=== PATIENT | male | born 1945 | race Caucasian/White ===

== ENCOUNTER 2018-04-22 12:56 | Observation (INO) | payer OTHER ==
[2018-04-22] MEDS ORDERED: FENTANYL CITR 100 MCG/2 ML ONE (15:22)
[2018-04-22] MEDS ORDERED: NA CHLORIDE 0.9% 1,000 ML ONE (15:23)
[2018-04-22] MEDS ORDERED: NA CHLORIDE 0.9% 500 ML ONE (15:23)
[2018-04-22] MEDS ORDERED: TETANUS & DIPHTHERIA TOX,ADULT 0.5 ML VIAL ONE (15:23)
[2018-04-22] MEDS ORDERED: ONDANSETRON 4 MG/2 ML VIAL ONE (15:23)
--- NOTE | 2018-04-22 15:47 | RAD REPORT ---
EXAM DESCRIPTION: US - LOWER EXTREMITY ARTERY UNI LTD - 04/22/2018 3:38 pm CLINICAL HISTORY: PAIN COMPARISON: None FINDINGS: Grayscale, spectral, color and power Doppler of the left lower extremity arterial system w as performed. Diffuse blunted and monophasic waveforms were seen throughout the left lower extremity arterial system. Significant inflow disease is suspected. No occlusion is present. IMPRESSION: Significant diffuse left lower extremity peripheral vascular disease is noted.
[2018-04-22] MEDS ORDERED: PIPER/TAZO/NS 3.375gm 3.375 GM/100 ML BAG IV ONE (16:00)
[2018-04-22] MEDS: VANCOMYCIN 750 MG in NA CHLORIDE 0.9% 150 ML IVPB SCH (16:00)
--- NOTE | 2018-04-22 16:13 | RAD REPORT ---
EXAM DESCRIPTION: RAD - Chest Single View - 04/22/2018 4:04 pm CLINICAL HISTORY: COUGH Chest pain. COMPARISON: CHEST SINGLE VIEW dated 03/13/2013; CHEST SINGLE VIEW dated 03/11/2013; CHEST SINGLE VIEW dated 03/10/2013 FINDINGS: Portable technique limits examination quality. The lungs are emphysematous. The heart is enlarged in size with aortic atherosclerosis. Heavy atheros clerosis is seen. Posttraumatic changes are present evidence of previous left arm amputation.
[2018-04-22 16:19] LABS: Absolute Lymphocytes (CBC) 0.8 K/uL (0.7-4.9); Absolute Monocytes 1.1 K/uL (0.1-1.3); Absolute Neutrophil 16.9 K/uL (1.8-8.0); Basophils % 0.2 % (0-1.3); Eosinophils % 0.2 % (0-4.4); Hematocrit 41.7 % (39.6-49.0); Lymphocytes % 4.3 % (15.3-44.8); MCH 32.9 pg (27.0-35.0); MCV 98.7 fL (80-100); MPV 9.1 fL (7.6-11.3); Monocytes % 5.9 % (3.3-12.3); RBC Red Blood Cell Count 4.22 M/uL (4.33-5.43)
--- NOTE | 2018-04-22 16:54 | ER ---
Nurse's Notes [facility] Name: Jorge Zuleta Age: 73 yrs Sex: Male : 1945 Arrival Date: 04/22/2018 Time: 13:01 Bed 17 Private MD: Out, [facility] Diagnosis: Cellulitis and acute lymphangitis of other parts of limb;Other specified peripheral vascular diseases-right foot, toe necrosis;Chronic obstructive pulmonary disease, unspecified;Elevated white blood cell count Presentation: 04/22 13:40 Presenting complaint: Child states: " He stays at a fdc in [place] and I go ph pick him up to visit. He has an infected wound on his foot and he says that they haven't been taking care of it like they are supposed to." wounds noted to top of L foot, L great, 2nd, 3rd, and 4th toes w/ subcutaneous tissue visible on top of foot, toes blackened in appearance, no drainage noted. Pt w/ L leg and R arm amputated, denies fever N/V/D, states, " My blood pressure has been low. Transition of care: patient was not received from another setting of care. Onset of symptoms was April 22, 2018. Risk Assessment: Do you want to hurt yourself or someone else? Patient reports no desire to harm self or others. Initial Sepsis Screen: Does the patient meet any 2 criteria? No. Patient's initial sepsis screen is negative. Does the patient have a suspected source of infection? Yes: Skin breakdown/wound. Care prior to arrival: None. 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 - Family history:: not pertinent. - Ebola Screening: : Patient negative for fever greater than or equal to 101.5 degrees Fahrenheit, and additional compatible Ebola Virus Disease symptoms. - Social history:: Smoking status: Patient uses tobacco products, smokes two packs cigarettes per day. Screenin:45 Abuse screen: Denies threats or abuse. Nutritional screening: No deficits noted. rb1 Tuberculosis screening: No symptoms or risk factors identified. Fall Risk No fall in past 12 months (0 pts). Secondary diagnosis (15 points) impaired mobility, No IV (0 pts). Ambulatory Aid- None/Bed Rest/Nurse Assist (0 pts). Gait- Impaired (20 pts.). Mental Status- Overestimates/Forgets Limitations (15 pts.). Total Payne Fall Scale indicates High Risk Score (45 or more points). Fall prevention measures have been instituted. Side Rails Up X 2 Placed Close to Nursing Station 1:1 Attendant Assigned Frequent Obs/Assessments Occuring Family Present and informed to notify staff if the need to leave the bedside As available patient and family educated on Fall Prevention Program and Strategies. Assessment: 13:45 General: Appears in no apparent distress. comfortable, slender, unkempt, Behavior is rb1 calm. Pain: Complains of pain in left leg. Neuro: Level of Consciousness is awake, obeys commands, confused, Oriented to person. Cardiovascular: Capillary refill is > 3 seconds is brisk in left toes. Respiratory: Airway is patent Respiratory effort is even, unlabored, Respiratory pattern is regular, symmetrical. GI: incontinence. : incontinence. Derm: Wound noted Other: wounds generalized on leg and arms. 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 15:26 Reassessment: From Alla at LT care facility: Pt is a resident [place] [id number] [facility]. Pt is out on pass since yesterday. Pt regularly on morphine. She reports pt is on hospice ([facility]) for wound on foot and "unavoidable weight loss". Medlist and history faxed over. Was told to call [phone] Station 1 if we have any more questions. 16:26 Reassessment: Patient appears in no apparent distress at this time. Patient and/or rb1 family updated on plan of care and expected duration. Pain level reassessed. 17:05 Reassessment: Dr. Hart is at bedside. rb1 17:23 Reassessment: Patient appears in no apparent distress at this time. Patient and/or rb1 family updated on plan of care and expected duration. Pain level reassessed. 18:00 Reassessment: Pt. refused the dressing on his foot. Pt. stated, "It hurts and I'm not rb1 going to let you do it.". 18:20 Reassessment: Patient appears in no apparent distress at this time. Patient and/or rb1 family updated on plan of care and expected duration. Pain level reassessed. 18:55 Reassessment: Attempted to do wound dressing again, but the pt. refused. rb1 19:30 Reassessment: Patient tolerated loose wet to dry dressing to left foot at this time, lp1 dressed with 4x4's and kerlix;. General: Behavior is uncooperative. Pain: Complains of pain in left foot Quality of pain is described as aching. Respiratory: Respiratory effort is even, unlabored. Derm: Skin is thin, with poor turgor Skin is dry, Skin is normal, Skin temperature is warm Wound noted Other: left foot wounds noted; black in color, poor perfusion noted. Vital Signs: 13:45 BP 102 / 70; Pulse 45; Resp 20; Temp 98.0(O); Pulse Ox 94% on R/A; Weight 38.1 kg; ph 16:30 BP 117 / 83; Pulse 90; Resp 20; Pulse Ox 95% on 4% Simple Mask; rb1 17:24 BP 133 / 77; Pulse 89; Resp 14; Pulse Ox 94% on 4% Simple Mask; rb1 18:24 BP 120 / 87; Pulse 94; Resp 21; Pulse Ox 95% on 4% Simple Mask; rb1 19:30 BP 117 / 68; Pulse 89; Resp 19; Pulse Ox 97% on R/A; lp1 ED Course: 13:01 Patient arrived in ED. sb2 13:01 Out, [facility] is Private Physician. sb2 13:45 Triage completed. ph 13:45 Patient has correct armband on for positive identification. Bed in low position. Call rb1 light in reach. Side rails up X2. site monitor on. Pulse ox on. NIBP on. Warm blanket given. 13:46 Marty Harris MD is Attending Physician. [facility] 13:46 Arm band placed on Patient placed in an exam room. ph 15:13 Roxy Feliciano, TAMARA is Primary Nurse. rb1 15:30 Inserted saline lock: 22 gauge in right antecubital area, using aseptic technique. rb1 Blood collected. 15:38 US LE Artery Uni Ltd In Process Unspecified. EDMS 16:04 XRAY Chest (1 view) In Process Unspecified. EDMS 16:30 EKG done, by ED staff, reviewed by Marty Harris MD. 3 16:52 Erasmo Hart DO is Hospitalizing Provider. mars 17:12 Lab(s) recollected, by me, sent to lab. Second set of blood cultures drawn by nv, by [facility] venipuncture 23G right forearm. 19:00 Report given to TAMARA Dorsey. rb1 19:44 No provider procedures requiring assistance completed. Patient admitted, IV remains in lp1 place. 20:10 Repeat lab(s) drawn. by me, sent to lab. lp1 Administered Medications: 16:00 Drug: Tetanus-Diphtheria Toxoid Adult 0.5 ml {[employer]: [employer]. Exp: rb1 05/17/2019. Lot #: [id number]. } Route: IM; Site: right deltoid; 16:15 Follow up: Response: No adverse reaction rb1 16:05 Drug: NS 0.9% 500 ml Route: IV; Rate: bolus; Site: right antecubital; rb1 16:40 Follow up: IV Status: Completed infusion rb1 16:05 Drug: fentaNYL (PF) 25 mcg Route: IVP; Site: right antecubital; rb1 16:20 Follow up: Response: No adverse reaction; Pain is decreased rb1 16:05 Drug: Zofran 4 mg Route: IVP; Site: right antecubital; rb1 16:20 Follow up: Response: No adverse reaction; Nausea is decreased rb1 16:40 Drug: Zosyn 3.375 grams {Note: Called Mina in pharmacy to see if Vancomycin and Zosyn rb1 were compatible so they could be hung together and he said yes..} Route: IVPB; Infused Over: 60 mins; Site: right antecubital; 17:50 Follow up: Response: No adverse reaction; IV Status: Completed infusion rb1 16:40 Drug: vancoMYCIN 800 mg Route: IVPB; Infused Over: 2 hrs; Site: right antecubital; rb1 17:50 Follow up: Response: No adverse reaction; IV Status: Completed infusion rb1 18:30 Drug: NS 0.9% 1000 ml Route: IV; Rate: 125 ml/hr; Site: right antecubital; rb1 19:59 Follow up: IV Status: Infusion continued upon admission lp1 19:10 Drug: Pepcid 20 mg Route: IVP; Site: right antecubital; rb1 19:58 Follow up: Response: No adverse reaction lp1 19:10 Drug: Lopressor 25 mg Route: PO; rb1 19:58 Follow up: Response: No adverse reaction lp1 19:10 Drug: Aspirin 162 mg Route: PO; rb1 19:59 Follow up: Response: No adverse reaction lp1 19:21 Not Given (Patient Refused): Lovenox 1 mg/kg Sub-Q once rb1 Outcome: 16:54 Decision to Hospitalize by Provider. [facility] 19:44 Condition: stable [facility] 19:44 Instructed on the need for admit. 19:57 Admitted to Med/surg via stretcher, room 218, with chart, Report called to TAMARA Rodriguez lp1 20:24 Patient left the ED. lp1 Signatures: Dispatcher [employer] EDMS Naila Muniz, RN RN dm5 Marty Harris MD MD cha Pena, Laura RN RN lp1 Jacqueline Gimenez RN Roxy Mccray ph, RN RN rb1 Lexis Russo 3 Sydney De Jesus sb2 Corrections: (The following items were deleted from the chart) 17:24 16:26 Reassessment: Patient appears in no apparent distress at this time. Patient rb1 and/or family updated on plan of care and expected duration. Pain level reassessed. Patient is alert, oriented x 3, equal unlabored respirations, skin warm/dry/pink. rb1
--- NOTE | 2018-04-22 16:54 | EDPHYS ---
Physician Documentation [facility] Name: Jorge Zuleta Age: 73 yrs Sex: Male : 1945 Arrival Date: 04/22/2018 Time: 13:01 Bed 17 Private MD: Out, [facility] ED Physician Marty Harris HPI: 04/22 14:47 This 73 yrs old Male presents to ER via Wheelchair with complaints of FOOT mars INFECTION. 14:47 The patient presents with decreased range of motion, an injury. The complaints affect mars the lateral aspect of left calf, left lateral ankle, lateral aspect of left foot, medial aspect of left calf, left medial ankle, medial aspect of left foot, left arteaga and dorsum of left foot. Context: The problem was sustained at home. Onset: The symptoms/episode began/occurred 3 day(s) ago. Modifying factors: The symptoms are alleviated by nothing. the symptoms are aggravated by movement, bending knee. Associated signs and symptoms: The patient has no apparent associated signs or symptoms. Severity of symptoms: At their worst the symptoms were mild, moderate, in the emergency department the symptoms are actually worse, markedly. The patient has experienced similar episodes in the past, multiple times. 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 - Family history:: not pertinent. - Ebola Screening: : Patient negative for fever greater than or equal to 101.5 degrees Fahrenheit, and additional compatible Ebola Virus Disease symptoms. - Social history:: Smoking status: Patient uses tobacco products, smokes two packs cigarettes per day. ROS: 14:47 Constitutional: Negative for fever, chills, and weight loss, Eyes: Negative for injury, mars pain, redness, and discharge, ENT: Negative for injury, pain, and discharge, Neck: Negative for injury, pain, and swelling, Cardiovascular: Negative for chest pain, palpitations, and edema, Respiratory: Negative for shortness of breath, cough, wheezing, and pleuritic chest pain, Abdomen/GI: Negative for abdominal pain, nausea, vomiting, diarrhea, and constipation, Back: Negative for injury and pain, : Negative for injury, bleeding, discharge, and swelling, Skin: Negative for injury, rash, and discoloration, Neuro: Negative for headache, weakness, numbness, tingling, and seizure, Psych: Negative for depression, anxiety, suicide ideation, homicidal ideation, and hallucinations, Allergy/Immunology: Negative for hives, rash, and allergies, Endocrine: Negative for neck swelling, polydipsia, polyuria, polyphagia, and marked weight changes, Hematologic/Lymphatic: Negative for swollen nodes, abnormal bleeding, and unusual bruising. 14:47 MS/extremity: Positive for decreased range of motion, pain, swelling, tenderness, warmth, of the lateral aspect of left calf, left lateral ankle, lateral aspect of left foot, medial aspect of left calf, left medial ankle, medial aspect of left foot, left arteaga, anterior aspect of left ankle and dorsum of left foot. Exam: 14:47 Constitutional: This is a well developed, well nourished patient who is awake, alert, mars and in no acute distress. Head/Face: Normocephalic, atraumatic. Eyes: Pupils equal round and reactive to light, extra-ocular motions intact. Lids and lashes normal. Conjunctiva and sclera are non-icteric and not injected. Cornea within normal limits. Periorbital areas with no swelling, redness, or edema. ENT: Nares patent. No nasal discharge, no septal abnormalities noted. Tympanic membranes are normal and external auditory canals are clear. Oropharynx with no redness, swelling, or masses, exudates, or evidence of obstruction, uvula midline. Mucous membranes moist. Neck: Trachea midline, no thyromegaly or masses palpated, and no cervical lymphadenopathy. Supple, full range of motion without nuchal rigidity, or vertebral point tenderness. No Meningismus. Chest/axilla: Normal chest wall appearance and motion. Nontender with no deformity. No lesions are appreciated. Respiratory: Lungs have equal breath sounds bilaterally, clear to auscultation and percussion. No rales, rhonchi or wheezes noted. No increased work of breathing, no retractions or nasal flaring. Abdomen/GI: Soft, non-tender, with normal bowel sounds. No distension or tympany. No guarding or rebound. No evidence of tenderness throughout. Back: No spinal tenderness. No costovertebral tenderness. Full range of motion. Male : Normal genitalia with no discharge or lesions. Neuro: Awake and alert, GCS 15, oriented to person, place, time, and situation. Cranial nerves II-XII grossly intact. Motor strength 5/5 in all extremities. Sensory grossly intact. Cerebellar exam normal. Normal gait. Psych: Awake, alert, with orientation to person, place and time. Behavior, mood, and affect are within normal limits. 14:47 Cardiovascular: Rate: bradycardic, Rhythm: regular, Pulses: Pulses are 3+ in bilateral radial, brachial, femoral, popliteal, posterior tibial and and dorsalis pedis arteries.. Heart sounds: normal, Edema: is not appreciated, JVD: is not appreciated. Vital Signs: 13:45 BP 102 / 70; Pulse 45; Resp 20; Temp 98.0(O); Pulse Ox 94% on R/A; Weight 38.1 kg; ph 16:30 BP 117 / 83; Pulse 90; Resp 20; Pulse Ox 95% on 4% Simple Mask; rb1 17:24 BP 133 / 77; Pulse 89; Resp 14; Pulse Ox 94% on 4% Simple Mask; rb1 18:24 BP 120 / 87; Pulse 94; Resp 21; Pulse Ox 95% on 4% Simple Mask; rb1 19:30 BP 117 / 68; Pulse 89; Resp 19; Pulse Ox 97% on R/A; lp1 MDM: 13:47 Patient medically screened. [facility] 14:47 Data reviewed: vital signs, nurses notes, lab test result(s), EKG, radiologic studies, mars doppler, plain films. 04/22 14:46 Order name: Basic Metabolic Panel; Complete Time: 18:21 [facility] 04/22 14:46 Order name: CBC with Diff; Complete Time: 17:43 [facility] 04/22 14:46 Order name: Ckmb; Complete Time: 18:21 [facility] 04/22 14:46 Order name: CPK; Complete Time: 18:21 [facility] 04/22 14:46 Order name: LFT's; Complete Time: 18:21 [facility] 04/22 14:46 Order name: Magnesium; Complete Time: 18:21 [facility] 04/22 14:46 Order name: NT PRO-BNP; Complete Time: 18:21 [facility] 04/22 14:46 Order name: PT-INR; Complete Time: 17:43 [facility] 04/22 14:46 Order name: Ptt, Activated; Complete Time: 17:43 [facility] 04/22 14:46 Order name: Troponin (emerg Dept Use Only); Complete Time: 18:21 [facility] 04/22 14:46 Order name: Sed Rate; Complete Time: 17:43 [facility] 04/22 14:46 Order name: Blood Culture Adult (2) [facility] 04/22 14:46 Order name: Procalcitonin [facility] 04/22 14:46 Order name: Lactate; Complete Time: 18:21 [facility] 04/22 14:46 Order name: XRAY Chest (1 view); Complete Time: 16:49 [facility] 04/22 14:46 Order name: US LE Artery Uni Ltd; Complete Time: 16:49 [facility] 04/22 16:24 Order name: CBC Smear Scan; Complete Time: 17:43 [facility] 04/22 16:53 Order name: Digoxin; Complete Time: 18:21 04/22 16:54 Order name: Foot Left 3 View XRAY [facility] 04/22 17:00 Order name: Echo with Doppler [facility] 04/22 18:36 Order name: RAD [facility] 04/22 20:01 Order name: Lactate lp1 04/22 14:46 Order name: EKG; Complete Time: 14:47 [facility] 04/22 14:46 Order name: Cardiac monitoring; Complete Time: 16:55 [facility] 04/22 14:46 Order name: EKG - Nurse/Tech; Complete Time: 16:55 [facility] 04/22 14:46 Order name: IV Saline Lock; Complete Time: 16:28 [facility] 04/22 14:46 Order name: Labs collected and sent; Complete Time: 16:28 [facility] 04/22 14:46 Order name: O2 Per Protocol; Complete Time: 16:28 [facility] 04/22 14:46 Order name: O2 Sat Monitoring; Complete Time: 16:28 [facility] 04/22 14:46 Order name: Wound Care: wet to dry; Complete Time: 19:22 [facility] 04/22 16:53 Order name: Labs - recollect needed; Complete Time: 17:20 04/22 17:00 Order name: CONS Physician Consult EDMS 04/22 17:00 Order name: CONS Physician Consult EDIL Administered Medications: 16:00 Drug: Tetanus-Diphtheria Toxoid Adult 0.5 ml {[employer]: [employer]. Exp: rb1 05/17/2019. Lot #: [id number]. } Route: IM; Site: right deltoid; 16:15 Follow up: Response: No adverse reaction rb1 16:05 Drug: NS 0.9% 500 ml Route: IV; Rate: bolus; Site: right antecubital; rb1 16:40 Follow up: IV Status: Completed infusion rb1 16:05 Drug: fentaNYL (PF) 25 mcg Route: IVP; Site: right antecubital; rb1 16:20 Follow up: Response: No adverse reaction; Pain is decreased rb1 16:05 Drug: Zofran 4 mg Route: IVP; Site: right antecubital; rb1 16:20 Follow up: Response: No adverse reaction; Nausea is decreased rb1 16:40 Drug: Zosyn 3.375 grams {Note: Called Mina in pharmacy to see if Vancomycin and Zosyn rb1 were compatible so they could be hung together and he said yes..} Route: IVPB; Infused Over: 60 mins; Site: right antecubital; 17:50 Follow up: Response: No adverse reaction; IV Status: Completed infusion rb1 16:40 Drug: vancoMYCIN 800 mg Route: IVPB; Infused Over: 2 hrs; Site: right antecubital; rb1 17:50 Follow up: Response: No adverse reaction; IV Status: Completed infusion rb1 18:30 Drug: NS 0.9% 1000 ml Route: IV; Rate: 125 ml/hr; Site: right antecubital; rb1 19:59 Follow up: IV Status: Infusion continued upon admission lp1 19:10 Drug: Pepcid 20 mg Route: IVP; Site: right antecubital; rb1 19:58 Follow up: Response: No adverse reaction lp1 19:10 Drug: Lopressor 25 mg Route: PO; rb1 19:58 Follow up: Response: No adverse reaction lp1 19:10 Drug: Aspirin 162 mg Route: PO; rb1 19:59 Follow up: Response: No adverse reaction lp1 19:21 Not Given (Patient Refused): Lovenox 1 mg/kg Sub-Q once rb1 Disposition: 04/22/18 16:54 Hospitalization ordered by Erasmo Hart for Inpatient Admission. Preliminary diagnosis are Cellulitis and acute lymphangitis of other parts of limb, Other specified peripheral vascular diseases - right foot, toe necrosis, Chronic obstructive pulmonary disease, unspecified, Elevated white blood cell count. - Bed requested for Telemetry/MedSurg (Inpatient). - Status is Inpatient Admission. lp1 - Condition is Serious. - Problem is new. - Symptoms have improved. UTI on Admission? No Signatures: Dispatcher [employer] EDJoleen Bull Kimberly, RN RN Marty Kendrick MD MD cha Pena, Laura, RN RN lp1 Jacqueline Gimenez RN RN Roxy Feliciano RN RN [facility] Corrections: (The following items were deleted from the chart) 19:43 16:54 Hospitalization Ordered by Erasmo Hart DO for Inpatient Admission. Preliminary diagnosis is Cellulitis and acute lymphangitis of other parts of limb; Other specified peripheral vascular diseases - right foot, toe necrosis; Chronic obstructive pulmonary disease, unspecified; Elevated white blood cell count. Bed requested for Telemetry/MedSurg (Inpatient). Status is Inpatient Admission. Condition is Serious. Problem is new. Symptoms have improved. UTI on Admission? No. mars 20:24 19:43 04/22/2018 16:54 Hospitalization Ordered by Erasmo Hart DO for Inpatient lp1 Admission. Preliminary diagnosis is Cellulitis and acute lymphangitis of other parts of limb; Other specified peripheral vascular diseases - right foot, toe necrosis; Chronic obstructive pulmonary disease, unspecified; Elevated white blood cell count. Bed requested for Telemetry/MedSurg (Inpatient). Status is Inpatient Admission. Condition is Serious. Problem is new. Symptoms have improved. UTI on Admission? No. denny
[2018-04-22 17:40] LABS: Protime INR 1.14
[2018-04-22 17:41] LABS: Blood Morphology Comment NOT SEEN (NOT SEEN); Platelet Estimate ADEQ; Urine White Blood Cell Casts OK
[2018-04-22 17:46] LABS: ALT/SGPT 16 U/L (12-78); AST/SGOT 25 U/L (15-37); Albumin 2.7 g/dL (3.4-5.0); BUN Blood Urea Nitrogen 21 mg/dL (7-18); Bicarbonate 26 mmol/L (21-32); Bilirubin Direct 0.3 mg/dL (0-0.2); Glucose Level 83 mg/dL (74-106); Magnesium 2.4 mg/dL (1.8-2.4); Potassium 4.1 mmol/L (3.5-5.1); Sodium Level 140 mmol/L (136-145)
[2018-04-22 17:49] LABS: Alkaline Phosphatase 130 U/L (45-117); Bilirubin Total 0.7 mg/dL (0.2-1.0); CKMB Creatine Kinase MB 3.5 ng/mL (0.3-3.6); Creatine Phosphokinase 79 U/L (39-308); NT PRO-BNP 7132 pg/mL (<450); Protein, Total 7.1 g/dL (6.4-8.2)
[2018-04-22] MEDS ORDERED: DOCUSATE NA 100 MG CAP PO PRN (18:14)
[2018-04-22] MEDS ORDERED: ACETAMINOPHEN 650MG/RECT SUPP PR PRN (18:14)
[2018-04-22] MEDS ORDERED: TRAMADOL HCL 50 MG TAB PO PRN (18:14)
[2018-04-22] MEDS ORDERED: ONDANSETRON 4 MG/2 ML VIAL IV PRN (18:14)
[2018-04-22] MEDS ORDERED: ALBUTEROL 2.5 MG/3 ML NEB SOL NEB PRN (18:14)
[2018-04-22] MEDS ORDERED: IPRATROPIUM BROM 0.5MG/2.5ML NEB PRN (18:14)
[2018-04-22] MEDS ORDERED: ACETAMINOPHEN 500 MG TAB PO PRN (18:14)
--- NOTE | 2018-04-22 18:35 | RAD REPORT ---
EXAM DESCRIPTION: RAD - Foot Left 3 View - 04/22/2018 5:51 pm CLINICAL HISTORY: PAIN COMPARISON: None FINDINGS: Prominent diffuse osteopenia is seen. Vascular calcification. Prominent soft tissue wound seen along the dorsal aspect of the forefoot. Destructive changes noted involving the proximal phalan ges of second, third and fourth toes. Osteomyelitis is likely.
--- NOTE | 2018-04-22 18:42 | P.HP ---
Certification for Inpatient Patient admitted to: Observation With expected LOS: <2 Midnights Patient will require the following post-hospital care: Hospice Practitioner: I am a practitioner with admitting privileges, knowledge of patient current condition, hospital course, and medical plan of care. Services: Services provided to patient in accordance with Admission requirements found in Title 42 Section 412.3 of the Code of Federal Regulations Patient History Date of Service: 04/22/18 Primary Care Provider: Dr. Mullins([place]) Reason for admission: Left foot pain History of Present Illness: 73-year-old male with multiple medical problems including CAD, atrial fibrillation, peripheral vascular disease, history of osteomyelitis with previous right below-knee amputation. Most of the information came from the daughter and from hospice. The patient is a jail resident in a facility in [place]. The patient has history of osteomyelitis and gangrene of the left lower extremity. The daughter reports that she has been told that the patient is high risk for surgery. It was recommended that the patient be sent to a jail with hospice. This was arranged in the past. Patient is do not resuscitate. This past weekend the patient had a pass to come and visit family for his birthday. He was to have gone back last night to the jail but did not. It appears that the patient did not have any or adequate medication for pain. This was reported by hospice. Due to the increased pain family brought the patient in to be evaluated. The family also had questions concerning need for surgery or hospice. In the ER patient was evaluated. Patient has obvious osteomyelitis of the left lower extremity. Gangrenous toes were noted. Multiple ulcers noted. Patient had elevated white count of 18.9. Sodium 140, potassium 4.1, the patient appears malnourished. The patient was admitted for further evaluation to consider either continue hospice or possible surgery. Family is to readdress this issue in the morning. Surgery and Cardiology have been consulted. Allergies meperidine HCl [From Demerol] Allergy (Intermediate, Verified 03/10/13 15:20) Hives/Rash Home medications list reviewed: Yes Home Medications: Albuterol Neb [Proventil 0.083% Neb Soln] 2.5 mg NEB [id number] #120 amp 03/13/13 Aspirin Chewable [Aspirin Chewable*] 81 mg PO DAILY #30 tab.chew 03/13/13 Atorvastatin Calcium [Lipitor*] 20 mg PO BEDTIME #30 03/13/13 Digoxin [Lanoxin*] 0.25 mg PO DAILY #30 tab 03/13/13 Folic Acid [Folic Acid*] 1 mg PO DAILY #30 03/13/13 Furosemide [Lasix*] 40 mg PO DAILY #30 tab 03/13/13 Glucerna Shake [Glucerna*] 237 ml PO 1000,1400,2000 #60 can 03/13/13 Hydrocodone 5/APAP 325 [[place] 5/325*] 1 tab PO Q6HP PRN #60 tab 03/13/13 Ipratropium Neb [Atrovent*] 0.5 mg IH [id number] #120 amp 03/13/13 Metoprolol Tartrate [Lopressor*] 50 mg PO Q12HR #60 tab 03/13/13 Pantoprazole [Protonix Tab*] 40 mg PO DAILY #30 03/13/13 Pantoprazole [Protonix Tab*] 40 mg PO DAILYAC #30 tab 03/13/13 Pentoxifylline [Trental] 400 mg PO Q8HR #60 03/13/13 Tamsulosin [Flomax*] 0.4 mg PO DAILY #30 03/13/13 - Past Medical/Surgical History Diabetic: No -: COPD -: Severe peripheral vascular disease -: CAD -: Atrial fibrillation not on chronic anti coagulation therapy -: Osteomyelitis -: Gangrene of the left left foot -: History of right above knee amputation -: History of left arm amputation -: AKA R. leg -: Left arm amputation Psychosocial/ Personal History: The patient currently lives at a jail and is with hospice - Family History Family History: Reviewed- Non-Contributory - Social History Smoking Status: Smoker current status UNK Alcohol use: Yes CD- Drugs: No Caffeine use: Yes Place [facility] Review of Systems is unable to be obtained Physical Examination - Physical Exam General: Alert, In no apparent distress, Cooperative, Cachectic, Disheveled, Other (Unable to understand patient's unusual voice) HEENT: Atraumatic Neck: Supple, No Thyromegaly Respiratory: Clear to auscultation bilaterally, Normal air movement Cardiovascular: Normal pulses, Regular rate/rhythm Gastrointestinal: Normal bowel sounds, Soft and benign, Non-distended, No tenderness, No masses, No rebound, No guarding Musculoskeletal: Other (Gangrenous left foot with multiple ulcers and necrotic lesions. Erythema noted to the lower extremity. Poor circulation noted. Patient with right above knee amputation. Patient with left extremity amputation.) Integumentary: Other (As above) Neurological: Normal speech, Normal strength at 5/5 x4 extr, Normal tone, Normal affect - Studies Laboratory Data (last 24 hrs) 04/22/18 16:00: WBC 18.9 H, Hgb 13.9, Hct 41.7, Plt Count 327 Assessment and Plan - Problems (Diagnosis) (1) Osteomyelitis Current Visit: Yes Status: Acute Plan: Patient likely with left osteomyelitis of the left foot with necrotic/ gangrenous foot. Patient currently in hospice at this time. Daughter and son are to come tomorrow to discuss continuation of hospice or the possibility of surgery. I discussed the case in detail with the daughter. Patient would be high risk for surgery. She understands risks of surgery includes . Advanced directives address in detail. Patient is do not resuscitate. She understands the risks. Apparently there is 1 family member that still desires him to get surgery. Case discussed at length with hospice about the need for better pain control. Anticipate family will continue with hospice if pain control is improved. Surgery and cardiology consulted in the event that they want to proceed with surgery. Will discuss with surgery and cardiology. For now will continue with antibiotic therapy. Will provide pain medication. Qualifiers: Osteomyelitis location: foot Laterality: left (2) Gangrene Current Visit: Yes Status: Acute Plan: Left foot gangrene. Continue as above. (3) PVD (peripheral vascular disease) Current Visit: Yes Status: Acute Plan: Patient with severe PVD. Continue as above. (4) CAD (coronary artery disease) Current Visit: Yes Status: Chronic Plan: Continue with prior medication. (5) Atrial fibrillation Current Visit: Yes Status: Chronic Plan: Patient with history of atrial fibrillation. Not on chronic anti coagulation therapy due to risk of bleeding. Qualifiers: Atrial fibrillation type: chronic Qualified Code(s): I48.2 - Chronic atrial fibrillation (6) COPD (chronic obstructive pulmonary disease) Current Visit: Yes Status: Chronic Plan: Will provide medication. Qualifiers: COPD type: chronic bronchitis Chronic bronchitis type: unspecified Qualified Code(s): J42 - Unspecified chronic bronchitis Discharge Plan: Other (Hospice at jail) Plan to discharge in: 24 Hours - Advance Directives Does patient have a Living Will: No Does patient have a Durable POA for Healthcare: No - Code Status/Comfort Care Code Status Assessed: Yes (This was discussed in detail with family me. Patient is do not resuscitate) Time Spent Managing Pts Care (In Minutes): 55
[2018-04-22] MEDS ORDERED: ASPIRIN EC 81 MG TAB PO ONE (19:14)
[2018-04-22] MEDS ORDERED: METOPROLOL TAR 25 MG TAB ONE (19:14)
[2018-04-22] MEDS ORDERED: ENOXAPARIN 80 MG/0.8 ML SQ ONE (19:15)
[2018-04-22] MEDS ORDERED: FAMOTIDINE 20 MG/2 ML VIAL IV ONE (19:15)
[2018-04-22] MEDS: MORPHINE *EXTENDED RELEASE* 15 MG TAB PO SCH (21:00)
[2018-04-22] MEDS: ENOXAPARIN 40 MG/0.4 ML SQ SCH (21:00)
[2018-04-22] MEDS: ARFORMOTEROL TARTRATE 15 MCG/2 ML VIAL.NEB NEB SCH (21:40)
[2018-04-22 22:03] VITALS: BMI 13.4
[2018-04-23] MEDS: PIPER/TAZO/NS 3.375gm 3.375 GM/100 ML BAG IVPB SCH ×3 (01:28→17:00)
[2018-04-23] MEDS ORDERED: MORPHINE 2 MG/ML SYR IV ONE (03:06)
[2018-04-23 05:46] LABS: Absolute Lymphocytes (CBC) 0.9 K/uL (0.7-4.9); Absolute Neutrophil 14.3 K/uL (1.8-8.0); BUN Blood Urea Nitrogen 18 mg/dL (7-18); Basophils % 0.5 % (0-1.3); Bicarbonate 24 mmol/L (21-32); Eosinophils % 0.1 % (0-4.4); Glucose Level 72 mg/dL (74-106); Hematocrit 37.6 % (39.6-49.0); Lymphocytes % 5.5 % (15.3-44.8); MCV 99.3 fL (80-100); MPV 7.5 fL (7.6-11.3); Magnesium 2.4 mg/dL (1.8-2.4); Monocytes % 6.1 % (3.3-12.3); Potassium 3.9 mmol/L (3.5-5.1); RBC Red Blood Cell Count 3.79 M/uL (4.33-5.43); Sodium Level 144 mmol/L (136-145)
[2018-04-23] MEDS ORDERED: PNEUMOCOCCAL VACCINE 0.5 ML IMVAC ONE (06:00)
[2018-04-23] MEDS: METOPROLOL TAR 25 MG TAB PO SCH ×2 (06:00→17:49)
[2018-04-23] MEDS: ARFORMOTEROL TARTRATE 15 MCG/2 ML VIAL.NEB NEB SCH (07:52)
[2018-04-23] MEDS ORDERED: DIGOXIN 0.125 MG TABLET PO SCH (09:00)
[2018-04-23] MEDS: ENOXAPARIN 40 MG/0.4 ML SQ SCH (09:00)
[2018-04-23] MEDS ORDERED: ASPIRIN EC 81 MG TAB PO SCH (09:00)
[2018-04-23] MEDS ORDERED: VANCOMYCIN 1 GM in NA CHLORIDE 0.9% 500 ML IVPB SCH (09:00)
[2018-04-23] MEDS: MORPHINE *EXTENDED RELEASE* 15 MG TAB PO SCH (09:36)
--- NOTE | 2018-04-23 09:45 | EKG ---
Test Date: 2018-04-22 Test Time: 16:32:37 Ribbon Lapper Tender: RAMON MEASUREMENT RESULTS: Intervals: Rate: 96 OK: QRSD: 126 QT: 364 QTc: 459 Barnum: P: OK: QRS: -46 T: -65 INTERPRETIVE STATEMENTS: Atrial fibrillation with premature ventricular complexes Left anterior fascicular block cannot rule out inferior infarct masked by fascicular block Abnormal ECG Compared to ECG 03/11/2013 06:51:28 questionable infarct finding now present Electronically Signed On 04-23-18 09:45:00 CDT by Herman Bahena
[2018-04-23 11:07] VITALS: O2SAT 97
--- NOTE | 2018-04-23 15:27 | P.DS ---
Admission Date: 04/22/18 Discharge Date: 04/23/18 Primary Care Provider: Dr. Mullins([place]) Disposition: HOSPICE-MEDICAL FACILITY Discharge Condition: GOOD Reason for Admission: Left foot pain Consultations: Surgery-Dr. Samuel Cardiology-Dr. Bahena - Problems (1) Osteomyelitis Onset Date: 04/23/18 Current Visit: Yes Status: Acute Qualifiers: Osteomyelitis location: foot Laterality: left (2) Gangrene Onset Date: 04/23/18 Current Visit: Yes Status: Acute (3) PVD (peripheral vascular disease) Onset Date: 04/23/18 Current Visit: Yes Status: Acute (4) CAD (coronary artery disease) Onset Date: 04/23/18 Current Visit: Yes Status: Chronic (5) Atrial fibrillation Onset Date: 04/23/18 Current Visit: Yes Status: Chronic Qualifiers: Atrial fibrillation type: chronic Qualified Code(s): I48.2 - Chronic atrial fibrillation (6) COPD (chronic obstructive pulmonary disease) Onset Date: 04/23/18 Current Visit: Yes Status: Chronic Qualifiers: COPD type: chronic bronchitis Chronic bronchitis type: unspecified Qualified Code(s): J42 - Unspecified chronic bronchitis Brief History of Present Illness: 73-year-old male with multiple medical problems including CAD, atrial fibrillation, peripheral vascular disease, history of osteomyelitis with previous right below-knee amputation. Most of the information came from the daughter and from hospice. The patient is a [facility] resident in a facility in [place]. The patient has history of osteomyelitis and gangrene of the left lower extremity. The daughter reports that she has been told that the patient is high risk for surgery. It was recommended that the patient be sent to a [facility]ci with hospice. This was arranged in the past. Patient is do not resuscitate. This past weekend the patient had a pass to come and visit family for his birthday. He was to have gone back last night to the fci but did not. It appears that the patient did not have any or adequate medication for pain. This was reported by hospice. Due to the increased pain family brought the patient in to be evaluated. The family also had questions concerning need for surgery or hospice. In the ER patient was evaluated. Patient has obvious osteomyelitis of the left lower extremity. Gangrenous toes were noted. Multiple ulcers noted. Patient had elevated white count of 18.9. Sodium 140, potassium 4.1, the patient appears malnourished. The patient was admitted for further evaluation to consider either continue hospice or possible surgery. Family is to readdress this issue in the morning. Surgery and Cardiology have been consulted. Hospital Course: Patient admitted for left lower extremity pain. Patient has complicating history of left foot gangrene and osteomyelitis. Patient with history of severe PVD, CAD, hypertension, CHF and previous right above knee amputation and left upper extremity amputation. Patient currently with hospice. Patient provided medication for pain. Pain under control at this time. Care and plan of care discussed in detail with cardiology and surgery. Both recommend no surgery at this time as the patient is high risk for surgery. Both recommend to continue hospice. This was addressed in detail with the son and daughter. Both understand that the patient is high risk for surgery and that pain is currently under control with hospice.. Recommendation to continue with hospice. Both are in agreement. Arrangements will be made so that he can go to a fci locally instead of the fci in [place]. At discharge patient will be transferred to [facility] to continue hospice with [facility]. Patient will continue previous home medications. Further adjustments in pain medication and medications in general will be done by hospice. Patient DNR. Vital Signs/Physical Exam: Temp Pulse Resp BP Pulse Ox 98.3 F 90 20 115/59 L 100 04/23/18 12:00 04/23/18 12:00 04/23/18 12:00 04/23/18 12:04/23/18 12:00 General: Alert, In no apparent distress, Cooperative, Cachectic, Disheveled HEENT: Atraumatic Neck: Supple Respiratory: Clear to auscultation bilaterally, Normal air movement Cardiovascular: Normal pulses, Regular rate/rhythm Gastrointestinal: Normal bowel sounds, Soft and benign, Non-distended Musculoskeletal: Other (Left gangrene of the foot. Chronic ischemic changes noted) Neurological: Normal speech, Normal strength at 5/5 x4 extr, Normal tone Laboratory Data at Discharge: WBC 16.3 K/uL (4.3-10.9) H 04/23/18 05:04 Hgb 12.5 g/dL (13.6-17.9) L 04/23/18 05:04 Hct 37.6 % (39.6-49.0) L 04/23/18 05:04 Plt Count 275 K/uL (152-406) 04/23/18 05:04 PT 13.5 SECONDS (9.5-12.5) H 04/22/18 17:12 INR 1.14 04/22/18 17:12 APTT 28.5 SECONDS (24.3-36.9) 04/22/18 17:12 Sodium 144 mmol/L (136-145) 04/23/18 05:04 Potassium 3.9 mmol/L (3.5-5.1) 04/23/18 05:04 BUN 18 mg/dL (7-18) 04/23/18 05:04 Creatinine 0.50 mg/dL (0.55-1.3) L 04/23/18 05:04 Glucose 72 mg/dL (74-106) L 04/23/18 05:04 Magnesium 2.4 mg/dL (1.8-2.4) 04/23/18 05:04 Total Bilirubin 0.7 mg/dL (0.2-1.0) 04/22/18 17:12 AST 25 U/L (15-37) 04/22/18 17:12 ALT 16 U/L (12-78) 04/22/18 17:12 Alkaline Phosphatase 130 U/L (45-117) H 04/22/18 17:12 Home Medications: Acetaminophen 650 mg SP Q4H PRN 04/23/18 Aspirin Chewable [Aspirin Chewable*] 81 mg PO DAILY 04/23/18 Bisacodyl [Biscolax] 10 mg RC DAILY 04/23/18 Digoxin [Digitek] 125 mcg PO DAILY 04/23/18 Furosemide [Lasix*] 40 mg PO DAILY 04/23/18 Hyoscyamine Sulfate [Levsin TAB*] 0.125 mg PO Q4H PRN 04/23/18 Metoprolol Tartrate [Lopressor*] 12.5 mg PO BID 04/23/18 Morphine Sulfate [Morphine Sulfate ER] 15 mg PO BID 04/23/18 Multivitamin with Minerals [Multivitamins with Minerals] 1 each PO DAILY Promethazine HCl 25 mg PO Q4H PRN 04/23/18 traMADol HCL [Ultram*] 50 mg PO BID PRN 04/23/18 Patient Discharge Instructions: 1. Patient will be discharged to [facility] with continued hospice with IS[facility]ELL. 2. Patient is do not resuscitate. 3. Patient to continue with previous medications including aspirin 81 mg daily, digoxin 125 mcg daily, Lasix 40 mg 1 pill daily, metoprolol 12.5 mg 1 pill twice daily, morphine ER 15 mg 1 pill twice daily, and tramadol 50 mg 1 pill twice daily as needed for pain. Future adjustments in medications can be done by hospice. Diet: Regular Activity: Fall precautions Time spent managing pt's care (in minutes): 55
[2018-04-23] MEDS: VANCOMYCIN 750 MG in NA CHLORIDE 0.9% 150 ML IVPB SCH (16:00)
--- NOTE | 2018-04-23 16:07 | CON ---
CARDIOLOGY CONSULT Subjective: Mr. Zuleta is 73. I am asked to see him to evaluate his suitability for undergoing an a mputation, in other words a cardiac clearance. The patient comes to the hospital from a snf . He is in hospice and they are unable to control his pain. I am not exactly sure which medicines h ave been used, what liberties they have in prescribing narcotics, but he is in a lot of pa in. A consideration was made to have a surgeon amputate his foot, he has osteomyelitis. Mr. Zuleta has numerous medical problems, very advanced, in every way the hospice level of care seems appropriat e, although the pain management has been poor. There are not any cardiac interventions that should b e done, trying to revascularize the leg to improve the pain would simply not work. The patient's EKG is different now. There is possibly a new infarct. He is in atrial fibrillation all the time, not on anticoagulation. Overall, Mr. Zuleta' prognosis is very poor. His pain control is very poor. If it is deemed reasona ble by the surgeons and the rest of medical team that an amputation should take place, there are no c ontraindications regarding his heart for that to happen, it might be a better idea to liberalize the use of narcotics and keep Mr. Zuleta out of his wakeful painful state. SUMEET/GABY Voice ID: [id number] Report ID: [id number]
--- NOTE | 2018-04-23 16:13 | CON ---
Date of Consultation: 04/23/2018 Diagnosis: Left foot cellulitis and ulcers. History Of Present Illness: This is a case of a 73-year-old patient, in hospice, in the fdc in [place], probably who had been here over the weekend, noticed to have some tenderness over the le ft foot and brought to the ER for pain control. During the ER admission, they decided to admit the p atient. Apparently, he has been having this problem for a long time and has not been clear for any s urgery and they have not done any surgery on him for the foot and he has had chronic pain. He cannot get any information from the patient and mainly obtained from the chart. I discussed the case with Dr. Hart too and the family is describing. Allergies: PAST ALLERGIES: DEMEROL. Medications: Aspirin, Lipitor, Lasix, Atrovent, Lopressor, Protonix, , Flomax. Medical Problems: Include COPD, severe peripheral vascular disease, atrial fibrillation. Surgeries: Include left arm amputation, right above-knee amputation. Family History: Unknown. Social History: Unknown. Review of Systems: Unable to be obtained. Physical Examination: General: Patient is awake, alert, non-cooperative. He does not follow commands. Neck: Supple. Bilateral breath sounds. Abdomen: Soft and benign. No guarding or rebound. Extremities: Patient has right above-knee amputation. On the left side, patient has open ulcers ove r the left foot regions, arterial disease. No pulses palpated. Once again, the patient d oes not even let us put dressings on him. Diagnostic Data: On , left foot x-ray shows osteopenia, possible osteomyelitis. Assessment: A 73-year-old patient with ischemic wounds of the left foot region. He has been in hosp ice, severe cardiac disease. They came here for pain control, although patient is noncompliant, eith er not healing this area against the bed and also not even allowing dressing changes to be placed in. From a surgical standpoint, in the meantime, obviously increased circulation will be ideal. I do n ot know his vascular history. Apparently, it has been extensive, but I do not have any evidence of t he last any revascularization. The Doppler shows significant lower extremity peripheral vascular dis ease. I suspect this patient should have a vascular surgeon who has visualized that area to see if t here is way to improve circulation over the foot and that may solve his issues. In the meantime, we can treat the ulcers with either Santyl or Medihoney if he allows, which is not the case. LEIGHA Voice ID: [id number] Report ID: [id number]
[2018-04-23 17:59] VITALS: BP 132/68; TEMP 98
== END 2018-04-23 20:15 | disposition hospice, inpatient (51) ==
LOC: ER 12:56 → INTOOBSV 16:55 → ERHOLD 16:55 → 2ND 20:08
PROVIDERS: ADMIT Family Medicine; ATTEND Family Medicine
DX: M86.172 Other acute osteomyelitis, left ankle and foot (principal); I73.9 Peripheral vascular disease, unspecified; I25.10 Atherosclerotic heart disease of native coronary artery without angina pectoris; I48.2 Chronic atrial fibrillation; J44.9 Chronic obstructive pulmonary disease, unspecified; Z89.511 Acquired absence of right leg below knee; Z66 Do not resuscitate; Z89.202 Acquired absence of left upper limb, unspecified level
CPT/HCPCS: 36415; 71045; 73630; 80048 ×2; 80076; 80162; 82550; 82553; 82962; 83605 ×2; 83735 ×2; 83880; 84145; 84484; 85025 ×2; 85610; 85652; 85730; 87040 ×2; 87070; 87077 ×3; 87186 ×3; 87205; 90714; 93005; 93926; 94640; 96361; 96365; 96368; 96375; 99285; J2270; J2405; J2543 ×2; J3010; J7030; J7605 ×3; J1650